=== PATIENT | female | born 1940 | race Asian ===

== ENCOUNTER 2018-10-16 21:43 | Inpatient (IN) | payer OTHER ==
[2018-10-16] MEDS: SODIUM CHLORIDE 0.9% 1L BAG IV* (22:49)
[2018-10-16] MEDS: CEFEPIME 2GM/50 ML (PMX) 50 ML IVPB (22:50)
[2018-10-16] MEDS: VANCOMYCIN 1 GM (PMX) 250 ML IVPB (22:51)
[2018-10-16 23:05] LABS: ADD MAN DIFF? NO
[2018-10-16] MEDS ORDERED: ACETAMINOPHEN 500 MG TAB (23:12)
[2018-10-16 23:13] LABS: WHITE BLOOD COUNT 13.9 10^3/ul (4.8-10.8)
[2018-10-16 23:13] LABS: BASOPHILS % 0.1 % (0.0-2.0); HEMATOCRIT 37.3 % (37.0-47.0); HEMOGLOBIN 12.7 g/dl (12.0-16.0); MEAN CORPUSCULAR HEMOGLOBIN 30.2 pg (29.0-33.0); MEAN CORPUSCULAR VOLUME 88.8 fl (82.0-101.0); MEAN PLATELET VOLUME 9.1 fl (7.4-10.4); MONOCYTE # 1.3 10^3/ul (0.3-0.9); MONOCYTES % 9.2 % (0.0-11.0); NEUTROPHIL # 11.6 10^3/ul (1.6-7.5); NEUTROPHILS % 83.3 % (39.0-77.0); PLATELET COUNT 280 10^3/UL (140-415); RED CELL DISTRIBUTION WIDTH 12.4 % (11.5-14.5)
[2018-10-16 23:41] LABS: ALANINE AMINOTRANSFERASE 23 IU/L (13-69); ALBUMIN 4.3 g/dl (3.3-4.9); ALKALINE PHOSPHATASE 72 IU/L (42-121); ANION GAP 14 (5-13); ASPARTATE AMINO TRANSFERASE 36 IU/L (15-46); BILIRUBIN,INDIRECT 0.5 mg/dl (0-1.1); BILIRUBIN,TOTAL 0.5 mg/dl (0.2-1.3); BLOOD UREA NITROGEN 9 mg/dl (7-20); CALCIUM 8.6 mg/dl (8.4-10.2); CARBON DIOXIDE 21 mmol/L (21-31); CHLORIDE 91 mmol/L (97-110); CREATININE 0.84 mg/dl (0.44-1.00); GLUCOSE 145 mg/dl (70-220); POTASSIUM 4.7 mmol/L (3.5-5.1); SODIUM 126 mmol/L (135-144); TOTAL PROTEIN 7.6 g/dl (6.1-8.1)
[2018-10-16 23:57] LABS: TROPONIN-I 0.147 ng/ml (0.000-0.120)
[2018-10-17] MEDS: ENOXAPARIN 80 MG/0.8 ML SYG SC (00:49)
[2018-10-17 01:05] LABS: ADD UMIC YES; UR ASCORBIC ACID NEGATIVE (NEGATIVE); UR BACTERIA FEW /HPF (NONE SEEN); UR BILIRUBIN (Dip) NEGATIVE (NEGATIVE); UR BLOOD (Dip) 3+ mg/dL (NEGATIVE); UR CLARITY CLEAR (CLEAR); UR COLOR AMBER (YELLOW); UR GLUCOSE (Dip) NEGATIVE (NEGATIVE); UR KETONES (Dip) 1+ mg/dL (NEGATIVE); UR LEUKOCYTE ESTERASE (Dip) 2+ Leu/ul (NEGATIVE); UR NITRITE (Dip) POSITIVE (NEGATIVE); UR RBC 10 /HPF (0-5); UR SPECIFIC GRAVITY (Dip) 1.005 (1.003-1.030); UR TOTAL PROTEIN (Dip) NEGATIVE (NEGATIVE); UR UROBILINOGEN (Dip) 2+ mg/dL (NEGATIVE); UR WBC > 182 /HPF (0-5)
[2018-10-17] MEDS ORDERED: ONDANSETRON 4 MG INJ IV ×2 (02:00→02:30)
[2018-10-17] MEDS ORDERED: ACETAMINOPHEN 325 MG TAB PO (02:00)
[2018-10-17] MEDS ORDERED: ALBUTEROL/IPRATROPIUM (NEB) 3 ML AMP HHN (02:30)
[2018-10-17] MEDS ORDERED: morphine 2 MG INJ IV (02:30)
[2018-10-17] MEDS ORDERED: NACL 0.9% 3 ML SYG IV (02:30)
[2018-10-17] MEDS ORDERED: GLUCAGON 1 MG INJ IM (03:30)
[2018-10-17] MEDS ORDERED: GLUCOSE GEL 15 GRAM TUBE PO ×2 (03:30)
[2018-10-17] MEDS ORDERED: GLUCOSE GEL 15 GRAM TUBE BUCCAL (03:30)
[2018-10-17] MEDS ORDERED: DEXTROSE 50% 50 ML SYRINGE IV ×2 (03:30)
[2018-10-17] MEDS: ASPIRIN (EC) 81 MG TAB PO (03:32)
[2018-10-17] MEDS: DEXTROSE 5%-0.45% NACL 1,000 ML IV ×3 (03:33→20:19)
[2018-10-17] MEDS: PIPER-TAZO 3.375 GM IV (PMX) 100 ML IVPB ×4 (03:33→20:05)
[2018-10-17 03:43] LABS: CREATINE KINASE 583 IU/L (23-200)
[2018-10-17 03:57] LABS: CK INDEX 0.3; CK-MB 1.89 ng/ml (0.0-2.4)
[2018-10-17] MEDS: INSULIN ASPART [NOVOLOG] 3 ML PEN SC ×4 (04:43→20:12)
[2018-10-17 05:38] LABS: ADD MAN DIFF? NO
[2018-10-17 05:42] LABS: BASOPHILS % 0.2 % (0.0-2.0); HEMATOCRIT 35.4 % (37.0-47.0); HEMOGLOBIN 12.1 g/dl (12.0-16.0); LYMPHOCYTES # 1.1 10^3/ul (0.8-2.9); LYMPHOCYTES % 9.5 % (15.0-51.0); MEAN CORPUSCULAR HEMOGLOBIN 30.5 pg (29.0-33.0); MEAN CORPUSCULAR HGB CONC 34.2 g/dl (32.0-37.0); MEAN CORPUSCULAR VOLUME 89.2 fl (82.0-101.0); MEAN PLATELET VOLUME 8.9 fl (7.4-10.4); MONOCYTE # 1.3 10^3/ul (0.3-0.9); MONOCYTES % 11.2 % (0.0-11.0); NEUTROPHIL # 9.2 10^3/ul (1.6-7.5); NEUTROPHILS % 78.7 % (39.0-77.0); PLATELET COUNT 237 10^3/UL (140-415); RED BLOOD COUNT 3.97 10^6/ul (4.20-5.40); RED CELL DISTRIBUTION WIDTH 12.4 % (11.5-14.5)
[2018-10-17 05:42] LABS: WHITE BLOOD COUNT 11.7 10^3/ul (4.8-10.8)
[2018-10-17 06:25] LABS: ALANINE AMINOTRANSFERASE 23 IU/L (13-69); ALBUMIN 3.4 g/dl (3.3-4.9); ALKALINE PHOSPHATASE 70 IU/L (42-121); ANION GAP 10 (5-13); ASPARTATE AMINO TRANSFERASE 33 IU/L (15-46); BILIRUBIN,INDIRECT 0.3 mg/dl (0-1.1); BILIRUBIN,TOTAL 0.3 mg/dl (0.2-1.3); BLOOD UREA NITROGEN 7 mg/dl (7-20); CARBON DIOXIDE 21 mmol/L (21-31); CHLORIDE 102 mmol/L (97-110); CHOL/HDL RATIO 3.6 RATIO; CHOLESTEROL 132 mg/dl (100-200); CREATININE 0.75 mg/dl (0.44-1.00); GLUCOSE 141 mg/dl (70-220); HDL CHOLESTEROL 36 mg/dl (33-92); LDL CHOLESTEROL,CALCULATED 73 mg/dl; MAGNESIUM 2.2 mg/dl (1.7-2.5); POTASSIUM 4.1 mmol/L (3.5-5.1); SODIUM 133 mmol/L (135-144); TOTAL PROTEIN 6.8 g/dl (6.1-8.1); TRIGLYCERIDES 113 mg/dl (0-149)
[2018-10-17 07:14] LABS: HEMOGLOBIN A1C 6.2 % (0-5.9)
[2018-10-17 07:20] LABS: THYROID STIMULATING HORMONE 0.931 MIU/L (0.465-4.680)
[2018-10-17] MEDS ORDERED: VANCOMYCIN IV PER PHARMACY XX (09:00)
[2018-10-17 10:39] LABS: CREATINE KINASE 546 IU/L (23-200)
[2018-10-17 10:51] LABS: CK INDEX 0.2; CK-MB 1.19 ng/ml (0.0-2.4); TROPONIN-I 0.031 ng/ml (0.000-0.120)
[2018-10-17] MEDS: ACETAMINOPHEN 325 MG TAB PO (17:39)
[2018-10-17] MEDS: INSULIN GLARGINE [LANTus] (100 UNITS/ML) SYG SC (21:21)
[2018-10-17] MEDS: VANCOMYCIN 750 MG (PMX) 250 ML IVPB (22:25)
[2018-10-18] MEDS: ACCU-CHEK XX (01:02)
[2018-10-18] MEDS: PIPER-TAZO 3.375 GM IV (PMX) 100 ML IVPB ×4 (01:03→17:06)
[2018-10-18] MEDS: INSULIN ASPART [NOVOLOG] 3 ML PEN SC ×4 (07:55→21:00)
[2018-10-18] MEDS: DEXTROSE 5%-0.45% NACL 1,000 ML IV (08:28)
[2018-10-18] MEDS: ASPIRIN 81 MG TAB PO (08:31)
[2018-10-18] MEDS: MULTIVITAMINS/MINERALS TAB PO (13:20)
[2018-10-18] MEDS: PANTOPRAZOLE (EC) 40 MG TAB PO (13:20)
[2018-10-18] MEDS: ENOXAPARIN 40 MG/0.4 ML SYG SC (13:21)
[2018-10-18] MEDS ORDERED: SIMVASTATIN 10 MG PO (21:00)
[2018-10-18] MEDS: ATORVASTATIN 10 MG TAB PO (21:35)
[2018-10-18] MEDS: DOCUSATE SODIUM 100 MG CAP PO (21:35)
[2018-10-18] MEDS: INSULIN GLARGINE [LANTus] (100 UNITS/ML) SYG SC (21:42)
[2018-10-18] MEDS: VANCOMYCIN 750 MG (PMX) 250 ML IVPB (22:58)
[2018-10-19] MEDS: PIPER-TAZO 3.375 GM IV (PMX) 100 ML IVPB ×3 (00:55→11:45)
[2018-10-19] MEDS: ACCU-CHEK XX (01:16)
[2018-10-19] MEDS: PANTOPRAZOLE (EC) 40 MG TAB PO (05:00)
[2018-10-19 06:37] LABS: ADD MAN DIFF? NO
[2018-10-19 06:48] LABS: BASOPHILS % 0.6 % (0.0-2.0); EOSINOPHILS # 0.1 10^3/ul (0.0-0.5); EOSINOPHILS % 1.1 % (0.0-7.0); HEMATOCRIT 33.8 % (37.0-47.0); HEMOGLOBIN 11.7 g/dl (12.0-16.0); LYMPHOCYTES # 1.7 10^3/ul (0.8-2.9); LYMPHOCYTES % 26.5 % (15.0-51.0); MEAN CORPUSCULAR HEMOGLOBIN 30.3 pg (29.0-33.0); MEAN CORPUSCULAR HGB CONC 34.6 g/dl (32.0-37.0); MEAN CORPUSCULAR VOLUME 87.6 fl (82.0-101.0); MEAN PLATELET VOLUME 8.8 fl (7.4-10.4); MONOCYTE # 0.9 10^3/ul (0.3-0.9); MONOCYTES % 14.3 % (0.0-11.0); NEUTROPHIL # 3.6 10^3/ul (1.6-7.5); PLATELET COUNT 321 10^3/UL (140-415); RED BLOOD COUNT 3.86 10^6/ul (4.20-5.40); RED CELL DISTRIBUTION WIDTH 12.8 % (11.5-14.5)
[2018-10-19 06:48] LABS: WHITE BLOOD COUNT 6.4 10^3/ul (4.8-10.8)
[2018-10-19 07:13] LABS: ANION GAP 9 (5-13); BLOOD UREA NITROGEN 7 mg/dl (7-20); CALCIUM 8.5 mg/dl (8.4-10.2); CARBON DIOXIDE 27 mmol/L (21-31); CHLORIDE 101 mmol/L (97-110); GLUCOSE 129 mg/dl (70-220); POTASSIUM 3.4 mmol/L (3.5-5.1); SODIUM 137 mmol/L (135-144)
[2018-10-19] MEDS: INSULIN ASPART [NOVOLOG] 3 ML PEN SC ×4 (07:38→21:00)
[2018-10-19] MEDS: POTASSIUM CHLORIDE (SR) 20 MEQ TAB PO (08:44)
[2018-10-19] MEDS: MULTIVITAMINS/MINERALS TAB PO (08:45)
[2018-10-19] MEDS: ASPIRIN 81 MG TAB PO (08:46)
[2018-10-19] MEDS: LISINOPRIL 10 MG TAB PO (08:46)
[2018-10-19] MEDS: ENOXAPARIN 40 MG/0.4 ML SYG SC (08:53)
[2018-10-19] MEDS: DOCUSATE SODIUM 100 MG CAP PO ×2 (09:00→21:00)
[2018-10-19] MEDS ORDERED: SIMVASTATIN 10 MG PO (09:00)
[2018-10-19] MEDS ORDERED: ASPIRIN (EC) 81 MG TAB PO (09:00)
[2018-10-19] MEDS: CEFTRIAXONE 1 GM/50 ML (PMX) 50 ML IVPB (15:23)
[2018-10-19] MEDS: ATORVASTATIN 10 MG TAB PO (21:13)
[2018-10-19] MEDS: INSULIN GLARGINE [LANTus] (100 UNITS/ML) SYG SC (21:23)
[2018-10-20] MEDS: ACCU-CHEK XX (01:22)
[2018-10-20] MEDS: PANTOPRAZOLE (EC) 40 MG TAB PO (06:38)
[2018-10-20 06:52] LABS: ADD MAN DIFF? NO
[2018-10-20 07:00] LABS: BASOPHILS % 0.5 % (0.0-2.0); EOSINOPHILS # 0.1 10^3/ul (0.0-0.5); HEMATOCRIT 35.2 % (37.0-47.0); HEMOGLOBIN 11.8 g/dl (12.0-16.0); LYMPHOCYTES # 2.2 10^3/ul (0.8-2.9); LYMPHOCYTES % 35.6 % (15.0-51.0); MEAN CORPUSCULAR HEMOGLOBIN 29.9 pg (29.0-33.0); MEAN CORPUSCULAR HGB CONC 33.5 g/dl (32.0-37.0); MEAN CORPUSCULAR VOLUME 89.3 fl (82.0-101.0); MEAN PLATELET VOLUME 8.8 fl (7.4-10.4); MONOCYTE # 0.7 10^3/ul (0.3-0.9); MONOCYTES % 11.4 % (0.0-11.0); NEUTROPHIL # 3.2 10^3/ul (1.6-7.5); PLATELET COUNT 377 10^3/UL (140-415); RED BLOOD COUNT 3.94 10^6/ul (4.20-5.40); RED CELL DISTRIBUTION WIDTH 13.2 % (11.5-14.5)
[2018-10-20 07:00] LABS: WHITE BLOOD COUNT 6.2 10^3/ul (4.8-10.8)
[2018-10-20 07:27] LABS: ANION GAP 8 (5-13); BLOOD UREA NITROGEN 12 mg/dl (7-20); CALCIUM 9.2 mg/dl (8.4-10.2); CARBON DIOXIDE 29 mmol/L (21-31); CHLORIDE 101 mmol/L (97-110); CREATININE 0.67 mg/dl (0.44-1.00); GLUCOSE 119 mg/dl (70-220); POTASSIUM 3.9 mmol/L (3.5-5.1); SODIUM 138 mmol/L (135-144)
[2018-10-20] MEDS: INSULIN ASPART [NOVOLOG] 3 ML PEN SC ×3 (07:36→17:11)
[2018-10-20] MEDS: LISINOPRIL 10 MG TAB PO (08:13)
[2018-10-20] MEDS: ASPIRIN 81 MG TAB PO (08:13)
[2018-10-20] MEDS: DOCUSATE SODIUM 100 MG CAP PO ×2 (08:13→08:52)
[2018-10-20] MEDS: MULTIVITAMINS/MINERALS TAB PO (08:13)
[2018-10-20] MEDS: ENOXAPARIN 40 MG/0.4 ML SYG SC (08:48)
[2018-10-20] MEDS: CEFTRIAXONE 1 GM/50 ML (PMX) 50 ML IVPB (15:27)
[2018-10-23] MEDS ORDERED: ALENDRONATE 70 MG TAB PO (06:00)
== END 2018-10-20 19:09 | disposition home or self-care (01) | DRG 872 ==
LOC: E/R 21:43 → TEL 10-17 01:48
DX: A41.51 Sepsis due to Escherichia coli [E. coli] (principal); E87.1 Hypo-osmolality and hyponatremia; N12 Tubulo-interstitial nephritis, not specified as acute or chronic; I10 Essential (primary) hypertension; E78.5 Hyperlipidemia, unspecified; J43.9 Emphysema, unspecified; R79.89 Other specified abnormal findings of blood chemistry; E11.9 Type 2 diabetes mellitus without complications; K43.9 Ventral hernia without obstruction or gangrene; R91.1 Solitary pulmonary nodule; E87.6 Hypokalemia; Z87.891 Personal history of nicotine dependence; Z79.84 Long term (current) use of oral hypoglycemic drugs; Z79.82 Long term (current) use of aspirin
CPT/HCPCS: 36415; 71045; 71250; 74176; 80048; 80053; 80061; 81001; 82550; 82553; 82962; 83036; 83605; 83735; 84443; 84484; 85025; 87040-91; 87086; 93005; 93306; 96365; 96366; 96368; 96372; 99285-25